=== PATIENT | male | born 1975 | race Caucasian/White ===

== ENCOUNTER 2020-09-12 08:34 | Outpatient (CLI) | payer BC ==
[2020-09-12 10:06] LABS: #Eosinphils 0.2 10x3/uL (0.0-0.5); #Monocytes 0.4 10x3/uL (0.0-1.1); #Neutrophils 3.6 10x3/uL (1.5-8.4); %Basophils 0.7 % (0.0-2.0); %Eosinophils 3.1 % (0.0-6.0); %Lymphocytes 27.1 % (18.0-47.0); %Monocytes 6.6 % (0.0-10.0); %Neutrophils 62.2 % (40.0-75.0); Hemoglobin 15.1 g/dL (13.5-17.5); Mean Corpuscular HGB CONC 34.2 g/dL (32.0-36.0); Mean Corpuscular Volume 87.9 fl (81.2-95.1); Mean Platelet Volume 9.5 fl (7.4-10.4); Platelet Count 214 10x3/uL (150-450); RBC Distribution Width 12.4 % (11.5-14.5); Red Blood Cell (RBC) Count 5.03 10x6/uL (4.32-5.72); White Blood Cell (WBC) Count 5.7 10x3/uL (3.5-10.5)
[2020-09-12 10:17] LABS: Anion Gap 14 mmol/L (10-20); BUN (Urea Nitrogen) 12 mg/dL (8.9-20.6); Calc. Creatinine Clearance 0 mL/min (70-130); Calcium 9.6 mg/dL (7.8-10.44); Carbon Dioxide 26 mmol/L (22-29); Chloride 106 mmol/L (98-107); Glucose 88 mg/dL (70-105); Potassium 3.8 mmol/L (3.5-5.1); Sodium 142 mmol/L (136-145)
== END 2020-09-12 08:35 | disposition home or self-care (01) ==
LOC: LABBT 08:34
PROVIDERS: ATTEND Specialist
DX: Z01.812 Encounter for preprocedural laboratory examination (principal); K64.4 Residual hemorrhoidal skin tags; K64.8 Other hemorrhoids
CPT/HCPCS: 80048; 85025

== ENCOUNTER 2020-09-17 10:22 | Day surgery (SDC) | payer BC ==
[2020-09-16 11:46] VITALS: BMI 22.1
[2020-09-17] MEDS ORDERED: Ketorolac Tromethamine 30 MG/ML VIAL ONE (11:59)
[2020-09-17] MEDS ORDERED: Bupivacaine 0.25% HCL 30 ML VIAL ONE (12:36)
[2020-09-17] MEDS ORDERED: EPINEPHrine 1 MG/ML AMP ONE (12:36)
[2020-09-17] MEDS ORDERED: Fentanyl 100 MCG/2 ML VIAL ONE (12:43)
[2020-09-17] MEDS ORDERED: Lidocaine 1% PF 5 ML VIAL ONE (12:51)
[2020-09-17] MEDS ORDERED: Dexamethasone 20 MG/5 ML VIAL ONE (12:51)
[2020-09-17] MEDS ORDERED: PHENYLEPHRINE-NS 100 MCG/ML 10 ML SYRINGE ONE (12:51)
[2020-09-17] MEDS ORDERED: PROPOFOL 200 MG/20 ML VIAL ONE (12:51)
[2020-09-17] MEDS ORDERED: Ondansetron PF 4 MG/2 ML Vial ONE (12:51)
[2020-09-17] MEDS ORDERED: Meperidine HCl/PF 25 MG/ML VIAL ONE (14:01)
== END 2020-09-17 15:10 | disposition home or self-care (01) ==
LOC: SDC 10:22
PROVIDERS: ATTEND Specialist
PROC: 06BY0ZC Excision of Hemorrhoidal Plexus, Open Approach (ICD-10-PCS; principal; 2020-09-17)
DX: K64.8 Other hemorrhoids (principal); K64.4 Residual hemorrhoidal skin tags; Z88.6 Allergy status to analgesic agent
CPT/HCPCS: 88304; J0171; J0690; J1885; J2175; J3010; S0020